=== PATIENT | female | born 1960 | race Caucasian/White ===

== ENCOUNTER 2019-10-11 10:04 | Emergency (ER) | payer MEDICAID, MEDICARE ==
[~2019-10-11] VITALS: Ht 157.4 cm; Wt 54.1 kg
[~2019-10-11 10:04] MED LIST: CTLP20T PO; ESOM10SU PO; METH4TAB PO; NAPR-243 PO; SULF1TAB38 PO
--- NOTE | 2019-10-11 10:15 | ED General ---
General Stated Complaint: WANTS HER PORT FLUSHED History of Present Illness Date Seen by Provider: Oct 11, 2019 Time Seen by Provider: 10:10 Initial Comments 59yo female presents requesting that her indwelling Mywv-p-Trrtauvb be flushed as she is due for a flush today. She has no acute medical complaints. Allergies and Home Medications Allergies Coded Allergies: Penicillins (Unverified Allergy, Severe, AIRWAY SWELLING, 04/14/10) Tetanus (Unverified Allergy, Severe, THROAT SWELLING, 04/14/10) Home Medications Citalopram Hydrobromide 20 Mg Tablet, Unknown Dose PO DAILY, (Reported) Naproxen 500 Mg Tablet, 1 EACH PO BID Prescribed by: SUSAN BARRAZA on 06/23/141915 Patient Home Medication List Home Medication List Reviewed: Yes Review of Systems Review of Systems Constitutional: see HPI All Other Systems Reviewed Negative Unless Noted: Yes (Negative excepted noted.) Past Djbykgf-Ggoedl-Qsjwos Hx Past Med/Social Hx: Reviewed Nursing Past Med/Soc Hx Seasonal Allergies Seasonal Allergies: Yes Past Medical History Section, Tubal Ligation PSYCHOLOGY ASSOCIATE History: Tubal Ligation Diverticulosis Arthritis Melanoma Anxiety, PTSD Family Medical History Reviewed Nursing Family Hx Physical Exam Vital Signs Capillary Refill : Height, Weight, BMI Height: 5'2" Weight: 130lbs. oz. 58.328831hz; BMI Method:Estimated General Appearance: No Apparent Distress Comments This is an older female appearing nontoxic and in no acute distress. Head is normocephalic and atraumatic. Neck is supple and nontender. Oropharynx is moist. Lungs are clear to auscultation in all stations. There is an indwelling portacatheter to the right upper chest wall without surrounding erythema, warmth, swelling or tenderness. There is a normal S1 and S2 without rubs or gallops and capillary refill is appropriate, less than 2 seconds globally. Abdomen is soft, nontender and nondistended. Skin is warm and dry without cyanosis, clubbing or edema. Psychiatrically, the patient demonstrates appropriate mood and affect and is alert. Progress/Results/Core Measures Suspected Sepsis SIRS Temperature: Pulse: Respiratory Rate: Blood Pressure / Mean: Results/Orders Vital Signs/I&O Capillary Refill : Progress Note : Time: 10:13 Progress Note Patient's indwelling gaem-a-yqhacjnj has been flushed by nursing as per her request. We will proceed with discharge at this time. Blood pressure is elevated today without cyanosis symptoms of acute end organ damage. Patient is counseled to follow-up with her primary care physician in the next 1-2 weeks for reassessment of her blood pressure. She understands and agrees. Departure Impression Primary Impression: Encounter for care related to Port-a-Cath Additional Impression: Benign essential HTN Disposition: 01 HOME, SELF-CARE Condition: Improved Departure-Patient Inst. Referrals: NO,LOCAL PHYSICIAN (PCP/Family) Primary Care Physician Patient Instructions: High Blood Pressure in Adults Add. Discharge Instructions: Follow-up with your primary care doctor in the next 1-2 weeks for a reevaluation of your blood pressure which was elevated at today's visit. Return to the emergency department right away with any new symptoms of concern. ROSHNI GIRON MD Oct 11, 2019 10:15
[2019-10-11 10:30] VITALS: BP 115/90
== END 2019-10-11 10:30 | disposition home or self-care (01) ==
LOC: EDUNIT# 10:04 → ER FS 10:06
DX: Z45.2 Encounter for adjustment and management of vascular access device (principal); I10 Essential (primary) hypertension; F41.9 Anxiety disorder, unspecified; Z88.0 Allergy status to penicillin; Z88.7 Allergy status to serum and vaccine; Z85.820 Personal history of malignant melanoma of skin

== ENCOUNTER → 2019-12-25 | Outpatient (CLI) | payer MEDICARE ==
[~2019-12-25] MED LIST changes: +HEParin (CENTRAL IV FLUSH) 500 UNIT/5 ML SYR IV ONE; +HEParin (CENTRAL IV FLUSH) 500 UNIT/5 ML SYR ONE
[2019-12-25 12:45] VITALS: BP 119/95
== END | disposition still patient (30) ==
LOC: SDC 12:38 → EDSTATUS 12-30 09:39
PROVIDERS: ATTEND Nurse Practitioner Family
DX: Z45.2 Encounter for adjustment and management of vascular access device (principal); Z85.118 Personal history of other malignant neoplasm of bronchus and lung
CPT/HCPCS: 96523

== ENCOUNTER 2020-03-22 11:21 | Outpatient (RCR) | payer MEDICARE ==
[2020-02-11 11:30] VITALS: BP 131/98
[~2020-03-22] VITALS: Ht 157.5 cm; Wt 57.9 kg
[2020-03-22 11:30] VITALS: BP 100/81
== END 2020-05-11 | disposition home or self-care (01) ==
LOC: SDC 11:21
PROVIDERS: ATTEND Nurse Practitioner Family
DX: Z85.118 Personal history of other malignant neoplasm of bronchus and lung (principal)
CPT/HCPCS: 96523

== ENCOUNTER 2020-06-05 19:28 | Emergency (ER) | payer MEDICARE, MEDICAID ==
[~2020-06-05] VITALS: Ht 157 cm; Wt 63.0 kg
[~2020-06-05 19:28] MED LIST changes: -HEParin (CENTRAL IV FLUSH) 500 UNIT/5 ML SYR IV ONE; -HEParin (CENTRAL IV FLUSH) 500 UNIT/5 ML SYR ONE
--- NOTE | 2020-06-05 21:14 | ED Back Pain ---
General Chief Complaint: Back Problems Stated Complaint: BACK SPASMS Nursing Triage Note: Pt here with back pain; states she has chronic back pain and low back spasms started a few days ago after "doing too much". Nursing Sepsis Screen: No Definite Risk Source of Information: Patient Exam Limitations: No Limitations History of Present Illness Date Seen by Provider: Jun 05, 2020 Time Seen by Provider: 21:13 Initial Comments To ER with midline low sacral back pain that is bilateral. No urinary symptoms. Pain present for a few days after "doing too much". She's been moving twice within the past couple of months. She states she was put on disability for chronic back pain but takes no medication for it. Location: Lumbar Spine, Paraspinous Muscles Timing/Duration: 1-2 Days Severity: Moderate Method of Injury: Unknown Associated Symptoms: denies symptoms Allergies and Home Medications Allergies Coded Allergies: Penicillins (Unverified Allergy, Severe, AIRWAY SWELLING, 04/14/10) Tetanus Vaccines and Toxoid (Unverified Allergy, Severe, THROAT SWELLING, 04/14/10) morphine (Unverified Adverse Reaction, Unknown, 12/25/19) Home Medications Citalopram Hydrobromide 20 Mg Tablet, Unknown Dose PO DAILY, (Reported) Naproxen 500 Mg Tablet, 1 EACH PO BID Prescribed by: SUSAN BARRAZA on 06/23/141915 Patient Home Medication List Home Medication List Reviewed: Yes Review of Systems Constitutional: see HPI EENTM: see HPI Respiratory: no symptoms reported Cardiovascular: no symptoms reported Genitourinary: no symptoms reported Musculoskeletal: see HPI, back pain Skin: no symptoms reported Psychiatric/Neurological: No Symptoms Reported Past Qfnohpd-Yivffc-Lqjudx Hx Patient Social History Type Used: Cigarettes 2nd Hand Smoke Exposure: Yes Recent Foreign Travel: No Contact w/Someone Who Travel: No Recent Infectious Disease Expo: No Recent Hopitalizations: No Seasonal Allergies Seasonal Allergies: Yes Past Medical History Surgeries: Yes (MELANOMAS REMOVED, X 3, L LUNG LOBECTOMY) Section, Lobectomy, Tubal Ligation Respiratory: Yes (L LUNG CA, TOBACCOISM) Cardiac: Yes Hypertension 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 Genitourinary: No Gastrointestinal: Yes (ULCERATIVE COLITIS) Colitis, Crohns Disease, Diverticulosis Musculoskeletal: Yes (BROKEN BACK HX) Arthritis Endocrine: Yes (CA THYROID) Hyperthyroidism HEENT: No Cancer: Yes ("LYMPH NODES") Lung, Melanoma, Thyroid What Type of Treatment Did You: Chemotherapy, Radiation, Surgical Intervention Psychosocial: Yes Anxiety, PTSD Integumentary: Yes (MELANOMA) Blood Disorders: No Physical Exam Vital Signs Vital Signs - First Documented 06/05/20 21:03 Temp 36.7 Pulse 126 Resp 18 B/P (MAP) 121/81 (94) Pulse Ox 98 O2 Delivery Room Air Capillary Refill : Less Than 3 Seconds Height, Weight, BMI Height: 5'2" Weight: 130lbs. oz. 58.894986tb; 25.00 BMI Method:Estimated General Appearance: No Apparent Distress, WD/WN, Thin, Other (she is tachycardic so for this reason I'll do a workup) HEENT: PERRL/EOMI, TMs Normal (which get an EKG on 5 a) Neck: Full Range of Motion, Normal Inspection Cardiovascular: Normal Peripheral Pulses, Tachycardia Respiratory: Chest Non Tender, No Accessory Muscle Use, No Respiratory Distress Gastrointestinal: Normal Bowel Sounds, Non Tender, Soft Extremity: Normal Capillary Refill, Normal Inspection Neurologic/Psychiatric: Alert, Oriented x3 Skin: Normal Color, Warm/Dry Progress/Results/Core Measures Results/Orders Lab Results Laboratory Tests Test 06/05/20 21:21 Range/Units White Blood Count 6.4 4.3-11.0 10^3/uL Red Blood Count 4.23 3.80-5.11 10^6/uL Hemoglobin 12.9 11.5-16.0 g/dL Hematocrit 39 35-52 % Mean Corpuscular Volume 92 80-99 fL Mean Corpuscular Hemoglobin 31 25-34 pg Mean Corpuscular Hemoglobin Concent 33 32-36 g/dL Red Cell Distribution Width 13.2 10.0-14.5 % Platelet Count 271 130-400 10^3/uL Mean Platelet Volume 9.2 9.0-12.2 fL Immature Granulocyte % (Auto) 0 % Neutrophils (%) (Auto) 71 42-75 % Lymphocytes (%) (Auto) 18 12-44 % Monocytes (%) (Auto) 7 0-12 % Eosinophils (%) (Auto) 3 0-10 % Basophils (%) (Auto) 1 0-10 % Neutrophils # (Auto) 4.6 1.8-7.8 10^3/uL Lymphocytes # (Auto) 1.1 1.0-4.0 10^3/uL Monocytes # (Auto) 0.5 0.0-1.0 10^3/uL Eosinophils # (Auto) 0.2 0.0-0.3 10^3/uL Basophils # (Auto) 0.0 0.0-0.1 10^3/uL Immature Granulocyte # (Auto) 0.0 0.0-0.1 10^3/uL Sodium Level 139 135-145 MMOL/L Potassium Level 3.1 L 3.6-5.0 MMOL/L Chloride Level 100 98-107 MMOL/L Carbon Dioxide Level 27 21-32 MMOL/L Anion Gap 12 5-14 MMOL/L Blood Urea Nitrogen 11 7-18 MG/DL Creatinine 0.87 0.60-1.30 MG/DL Estimat Glomerular Filtration Rate > 60 BUN/Creatinine Ratio 13 Glucose Level 128 H 70-105 MG/DL Calcium Level 9.3 8.5-10.1 MG/DL Corrected Calcium 9.1 8.5-10.1 MG/DL Total Bilirubin 0.3 0.1-1.0 MG/DL Aspartate Amino Transf (AST/SGOT) 21 5-34 U/L Alanine Aminotransferase (ALT/SGPT) 10 0-55 U/L Alkaline Phosphatase 66 40-136 U/L Troponin I < 0.028 <0.028 NG/ML Total Protein 7.7 6.4-8.2 GM/DL Albumin 4.3 3.2-4.5 GM/DL Thyroid Stimulating Hormone (TSH) 0.43 0.35-4.94 UIU/ML Free Thyroxine 1.00 0.70-1.48 NG/DL My Orders Orders - SUSAN BARRAZA GEOSPATIAL APPLICATIONS DEVELOPER Cbc With Automated Diff (06/05/20 21:07) Comprehensive Metabolic Panel (06/05/20 21:07) Ua Culture If Indicated (06/05/20 21:07) Ekg Tracing (06/05/20 21:07) Thyroid Stimulating Hormone (06/05/20 21:07) Free T4 (Free Thyroxine) (06/05/20 21:07) Ns Iv 1000 Ml (Sodium Chloride 0.9%) (06/05/20 21:15) Ketorolac Injection (Toradol Injection) (06/05/20 21:15) Orphenadrine Inj (Ed Only) (Norflex Inje (06/05/20 21:15) Troponin I (06/05/20 21:21) Potassium Chloride (Tablet) (Klor Con Ta (06/05/20 22:15) Medications Given in ED Current Medications Medications Dose Ordered Sig/Leonila Route Start Time Stop Time Status Last Admin Dose Admin Ketorolac Tromethamine 15 mg ONCE ONCE IVP 06/05/20 21:15 06/05/20 21:16 DC 06/05/20 21:27 15 MG Orphenadrine Citrate 60 mg ONCE ONCE IVP 06/05/20 21:15 06/05/20 21:16 DC 06/05/20 21:27 60 MG Vital Signs/I&O 06/05/20 21:03 Temp 36.7 Pulse 126 Resp 18 B/P (MAP) 121/81 (94) Pulse Ox 98 O2 Delivery Room Air Blood Pressure Mean: 94 Departure Impression Primary Impression: Low back pain Disposition: 01 HOME, SELF-CARE Condition: Stable Departure-Patient Inst. Decision time for Depature: 22:21 [address]errals: [facility] (PCP/Family) Primary Care Physician Patient Instructions: Low Back Pain (DC) Add. Discharge Instructions: 1. Return to ER for any concerns. Naproxen or ibuprofen anti-inflammatories in addition to the prescribed muscle relaxers. Follow-up with your doctor next week. All discharge instructions reviewed with patient and/or family. Voiced understanding. Scripts Methocarbamol (Robaxin-750) 750 Mg Tablet 750 MG PO Q4H PRN for PAIN-MODERATE (5-7), #20 TAB Prov: SUSAN BARRAZA APRN 06/05/20 SUSAN BARRAZA APRN Jun 05, 2020 21:14
[2020-06-05] MEDS ORDERED: NS IV 1000 ML 1,000 ML IV SCH (21:15)
[2020-06-05] MEDS ORDERED: KETOROLAC 30 MG/ML VIAL IVP ONE (21:15)
[2020-06-05] MEDS ORDERED: ORPHENADRINE 60 MG/2 ML (NORFLEX) AMP (ED ONLY) IVP ONE (21:15)
[2020-06-05 21:29] LABS: BASOPHILS % (AUTO) 1 % (0-10); EOSINOPHILS # (AUTO) 0.2 10^3/uL (0.0-0.3); EOSINOPHILS % (AUTO) 3 % (0-10); HEMATOCRIT 39 % (35-52); HEMOGLOBIN 12.9 g/dL (11.5-16.0); LYMPHOCYTES # (AUTO) 1.1 10^3/uL (1.0-4.0); LYMPHOCYTES % (AUTO) 18 % (12-44); MEAN CORPUSCULAR HEMOGLOBIN 31 pg (25-34); MEAN CORPUSCULAR HGB CONC 33 g/dL (32-36); MEAN CORPUSCULAR VOLUME 92 fL (80-99); MEAN PLATELET VOLUME 9.2 fL (9.0-12.2); MONOCYTES # (AUTO) 0.5 10^3/uL (0.0-1.0); MONOCYTES % (AUTO) 7 % (0-12); NEUTROPHILS # (AUTO) 4.6 10^3/uL (1.8-7.8); NEUTROPHILS % (AUTO) 71 % (42-75); PLATELET COUNT 271 10^3/uL (130-400); WHITE BLOOD COUNT 6.4 10^3/uL (4.3-11.0)
--- NOTE | 2020-06-05 21:45 | NUR ---
Late entry: Pt to room with c/o low back spasm; pt states she has chronic back pain and has moved recently and "done too much". Pt reports she takes no pain meds at home. Pt is able to ambulate to the room w/o difficulty with the use of a cane. Pt has an implanted port to the right chest; port accessed w/o difficulty. Labs sent; meds and fluids given as ordered.
[2020-06-05 21:48] LABS: ALBUMIN 4.3 GM/DL (3.2-4.5); CHLORIDE 100 MMOL/L (98-107); POTASSIUM 3.1 MMOL/L (3.6-5.0); SODIUM 139 MMOL/L (135-145)
[2020-06-05 21:49] LABS: CALCIUM 9.3 MG/DL (8.5-10.1)
[2020-06-05 21:51] LABS: GLUCOSE 128 MG/DL (70-105); TOTAL PROTEIN 7.7 GM/DL (6.4-8.2)
[2020-06-05 21:52] LABS: CARBON DIOXIDE 27 MMOL/L (21-32)
[2020-06-05 21:53] LABS: BILIRUBIN,TOTAL 0.3 MG/DL (0.1-1.0)
[2020-06-05 21:54] LABS: ALKALINE PHOSPHATASE 66 U/L (40-136); CREATININE SERUM 0.87 MG/DL (0.60-1.30); GFR ESTIMATED > 60
[2020-06-05 21:55] LABS: BUN/CREATININE RATIO 13
[2020-06-05 21:57] LABS: ALANINE AMINOTRANSFERASE 10 U/L (0-55)
[2020-06-05] MEDS ORDERED: KCL 10 MEQ TAB (MICRO K) PO ONE (22:15)
[2020-06-05] MEDS ORDERED: METH-313 PO (22:23)
[2020-06-05 22:55] LABS: BILIRUBIN,URINE NEGATIVE (NEGATIVE); CLARITY,URINE CLEAR; COLOR,URINE YELLOW; GLUCOSE, URINE (UA) NEGATIVE (NEGATIVE); KETONES,URINE NEGATIVE (NEGATIVE); LEUKOCYTE ESTERASE ,URINE TRACE (NEGATIVE); NITRITE,URINE POSITIVE (NEGATIVE); PROTEIN,URINE NEGATIVE (NEGATIVE)
[2020-06-05 23:05] LABS: BACTERIA,URINE LARGE /HPF; RBC,URINE 0-2 /HPF; SQUAMOUS EPITHELIAL CELL,UR 0-2 /HPF; WBC,URINE 50-100 /HPF
[2020-06-05 23:28] VITALS: BP 125/75
== END 2020-06-05 23:30 | disposition home or self-care (01) ==
LOC: EDUNIT# 19:28 → ER 19:30
DX: M54.5 Low back pain (principal); Z85.118 Personal history of other malignant neoplasm of bronchus and lung; Z85.850 Personal history of malignant neoplasm of thyroid; Z85.820 Personal history of malignant melanoma of skin; Z77.22 Contact with and (suspected) exposure to environmental tobacco smoke (acute) (chronic); Z88.0 Allergy status to penicillin; Z88.5 Allergy status to narcotic agent; Z88.7 Allergy status to serum and vaccine
CPT/HCPCS: 36415; 80053; 81000; 84439; 84443; 84484; 85025; 87077; 87088; 87186; 93005

== ENCOUNTER → 2020-06-15 | Outpatient (CLI) | payer MEDICARE, MEDICAID ==
[~2020-06-15] MED LIST changes: +METH-313 PO
== END ==
LOC: LAB 14:26
PROVIDERS: ATTEND Nurse Practitioner Family
DX: Z01.89 Encounter for other specified special examinations (principal); Z85.118 Personal history of other malignant neoplasm of bronchus and lung

== ENCOUNTER → 2020-06-15 | Outpatient (CLI) | payer MEDICARE, MEDICAID ==
[~2020-06-15] MED LIST changes: +CATHETER FLUSH 10 ML SYR IV PRN; +HOLD METFORMIN - RECEIVED CONTRAST 20 ML VIAL IV SCH; +IOHEXOL 350 MG/ML 100 ML (OMNIPAQUE 350) VIAL IV ONE; +NS 100 ML (IVPB) BAG IV ONE
[2020-06-15 14:48] LABS: ALBUMIN 4.3 GM/DL (3.2-4.5)
[2020-06-15 14:49] LABS: CHLORIDE 103 MMOL/L (98-107); POTASSIUM 4.5 MMOL/L (3.6-5.0); SODIUM 137 MMOL/L (135-145)
[2020-06-15 14:50] LABS: CALCIUM 9.5 MG/DL (8.5-10.1)
[2020-06-15 14:51] LABS: GLUCOSE 95 MG/DL (70-105); TOTAL PROTEIN 7.4 GM/DL (6.4-8.2)
[2020-06-15 14:52] LABS: CARBON DIOXIDE 25 MMOL/L (21-32)
[2020-06-15 14:53] LABS: BILIRUBIN,TOTAL 0.2 MG/DL (0.1-1.0)
[2020-06-15 14:54] LABS: ALKALINE PHOSPHATASE 72 U/L (40-136)
[2020-06-15 14:55] LABS: CREATININE SERUM 0.77 MG/DL (0.60-1.30); GFR ESTIMATED > 60
[2020-06-15 14:56] LABS: BUN/CREATININE RATIO 17
[2020-06-15 14:57] LABS: ALANINE AMINOTRANSFERASE 11 U/L (0-55)
--- NOTE | 2020-06-15 15:03 | Diagnostic Imaging Report ---
EXAMINATION: CT Chest with intravenous contrast. TECHNIQUE: Multiple contiguous axial images were obtained through the chest after the uneventful administration of intravenous contrast. All CT scans use one or more of the following dose optimizing techniques: automated exposure control, MA and/or KvP adjustment based on a patient size and exam type, or iterative reconstruction. HISTORY: Lung cancer. COMPARISON: 07/16/2019 FINDINGS: There has been a left upper lobectomy. There is fibrosis along the resection margin with architectural distortion which may be related to radiation therapy. Lungs are emphysematous and the left lower lobe is somewhat hyperinflated. Mild tree-in-bud nodules are seen in the left lower lobe likely representing aspiration. No pleural effusion. No pneumothorax. No suspicious nodules. There is a stable 8 mm left supraclavicular lymph node. There is no mediastinal lymphadenopathy. Heart size is normal. There are mild coronary artery calcifications. No pericardial effusion. Aorta is normal in caliber. Right port catheter tip terminates in the superior vena cava. Limited views of the upper abdomen are unremarkable. There are no suspicious osseous lesions. IMPRESSION: 1. Posttreatment changes in the left lung without local recurrence or metastatic disease. Dictated by: Dictated on workstation # [id number]
== END ==
LOC: RAD 14:45
PROVIDERS: ATTEND Nurse Practitioner
DX: Z85.118 Personal history of other malignant neoplasm of bronchus and lung (principal)
CPT/HCPCS: 36415; 71260; 80053

== ENCOUNTER 2020-07-01 13:51 | Outpatient (RCR) | payer MEDICARE, MEDICAID ==
[~2020-07-01 13:51] MED LIST changes: -CATHETER FLUSH 10 ML SYR IV PRN; -HOLD METFORMIN - RECEIVED CONTRAST 20 ML VIAL IV SCH; -IOHEXOL 350 MG/ML 100 ML (OMNIPAQUE 350) VIAL IV ONE; -NS 100 ML (IVPB) BAG IV ONE
[2020-07-01 14:22] LABS: BASOPHILS % (AUTO) 1 % (0-10); EOSINOPHILS # (AUTO) 0.3 10^3/uL (0.0-0.3); EOSINOPHILS % (AUTO) 6 % (0-10); HEMATOCRIT 36 % (35-52); HEMOGLOBIN 11.6 g/dL (11.5-16.0); LYMPHOCYTES # (AUTO) 1.3 10^3/uL (1.0-4.0); LYMPHOCYTES % (AUTO) 29 % (12-44); MEAN CORPUSCULAR HEMOGLOBIN 30 pg (25-34); MEAN CORPUSCULAR HGB CONC 33 g/dL (32-36); MEAN CORPUSCULAR VOLUME 93 fL (80-99); MONOCYTES # (AUTO) 0.3 10^3/uL (0.0-1.0); MONOCYTES % (AUTO) 7 % (0-12); NEUTROPHILS # (AUTO) 2.5 10^3/uL (1.8-7.8); NEUTROPHILS % (AUTO) 57 % (42-75); PLATELET COUNT 238 10^3/uL (130-400); WHITE BLOOD COUNT 4.4 10^3/uL (4.3-11.0)
[2020-07-01 14:42] LABS: ALANINE AMINOTRANSFERASE 9 U/L (0-55); ALBUMIN 4.2 GM/DL (3.2-4.5); ALKALINE PHOSPHATASE 64 U/L (40-136); BILIRUBIN,TOTAL 0.3 MG/DL (0.1-1.0); BUN/CREATININE RATIO 12; CALCIUM 9.2 MG/DL (8.5-10.1); CARBON DIOXIDE 24 MMOL/L (21-32); CHLORIDE 104 MMOL/L (98-107); CREATININE SERUM 0.74 MG/DL (0.60-1.30); GFR ESTIMATED > 60; GLUCOSE 86 MG/DL (70-105); POTASSIUM 3.6 MMOL/L (3.6-5.0); SODIUM 139 MMOL/L (135-145)
== END 2020-09-17 08:06 | disposition home or self-care (01) ==
LOC: ONC 13:51
PROVIDERS: ATTEND Internal Medicine Hematology & Oncology
DX: C34.12 Malignant neoplasm of upper lobe, left bronchus or lung (principal); J44.9 Chronic obstructive pulmonary disease, unspecified; Z87.891 Personal history of nicotine dependence; Z80.1 Family history of malignant neoplasm of trachea, bronchus and lung
CPT/HCPCS: 80053; 85025; G0463; 99214

== ENCOUNTER → 2020-07-20 | Outpatient (CLI) | payer MEDICARE, MEDICAID ==
[~2020-07-20] MED LIST changes: +RT-ALBUTEROL SULF 2.5 MG/3 ML PRE-MIX VIAL INH ONE
== END ==
LOC: RT 15:30
PROVIDERS: ATTEND Nurse Practitioner Family
DX: J30.9 Allergic rhinitis, unspecified (principal); R91.8 Other nonspecific abnormal finding of lung field; F17.210 Nicotine dependence, cigarettes, uncomplicated; Z85.118 Personal history of other malignant neoplasm of bronchus and lung
CPT/HCPCS: 94060; 94726; 94729

== ENCOUNTER → 2020-09-14 | Outpatient (CLI) | payer MEDICAID, MEDICARE ==
[~2020-09-14] MED LIST changes: -RT-ALBUTEROL SULF 2.5 MG/3 ML PRE-MIX VIAL INH ONE
--- NOTE | 2020-09-20 13:55 | Diagnostic Imaging Report ---
EXAMINATION: Digital mammogram bilateral screening with CAD. INDICATION: Screening. COMPARISON: This study was compared to the prior exams of 11/14/2017 and 09/28/2009. PERSONAL HISTORY: At this time, there are no current complaints. FINDINGS: The fibroglandular tissue in both breasts is heterogeneously dense. This does limit the sensitivity of this exam. Overall, there does not appear to have been any significant change when compared to the prior study. No primary or secondary sign of malignancy is noted. IMPRESSION: 1. There is no evidence for malignancy. 2. The patient should have her annual bilateral screening mammogram on schedule in September 2021. ACR BI-RADS Category 1: Negative. Result letter will be mailed to the patient. Note: At least 10% of breast cancer is not imaged by mammography. Dictated by: Dictated on workstation # [id number]
== END ==
LOC: RAD 09:39
PROVIDERS: ATTEND Nurse Practitioner
DX: Z12.31 Encounter for screening mammogram for malignant neoplasm of breast (principal)
CPT/HCPCS: 77063; 77067

== ENCOUNTER 2020-09-23 14:06 | Outpatient (RCR) | payer MEDICARE, MEDICAID ==
[2020-09-23 14:29] LABS: BASOPHILS % (AUTO) 1 % (0-10); EOSINOPHILS # (AUTO) 0.2 10^3/uL (0.0-0.3); EOSINOPHILS % (AUTO) 4 % (0-10); HEMATOCRIT 39 % (35-52); HEMOGLOBIN 12.5 g/dL (11.5-16.0); LYMPHOCYTES # (AUTO) 1.4 10^3/uL (1.0-4.0); LYMPHOCYTES % (AUTO) 26 % (12-44); MEAN CORPUSCULAR HEMOGLOBIN 31 pg (25-34); MEAN CORPUSCULAR HGB CONC 32 g/dL (32-36); MEAN CORPUSCULAR VOLUME 95 fL (80-99); MEAN PLATELET VOLUME 9.2 fL (9.0-12.2); MONOCYTES # (AUTO) 0.4 10^3/uL (0.0-1.0); MONOCYTES % (AUTO) 7 % (0-12); NEUTROPHILS # (AUTO) 3.4 10^3/uL (1.8-7.8); NEUTROPHILS % (AUTO) 62 % (42-75); PLATELET COUNT 224 10^3/uL (130-400); WHITE BLOOD COUNT 5.4 10^3/uL (4.3-11.0)
[2020-09-23 14:48] LABS: ALANINE AMINOTRANSFERASE 10 U/L (0-55); ALBUMIN 4.2 GM/DL (3.2-4.5); ALKALINE PHOSPHATASE 66 U/L (40-136); BILIRUBIN,TOTAL 0.2 MG/DL (0.1-1.0); BUN/CREATININE RATIO 12; CALCIUM 9.3 MG/DL (8.5-10.1); CARBON DIOXIDE 29 MMOL/L (21-32); CHLORIDE 101 MMOL/L (98-107); CREATININE SERUM 0.83 MG/DL (0.60-1.30); GFR ESTIMATED > 60; GLUCOSE 91 MG/DL (70-105); POTASSIUM 3.9 MMOL/L (3.6-5.0); SODIUM 138 MMOL/L (135-145); TOTAL PROTEIN 7.3 GM/DL (6.4-8.2)
== END 2020-12-22 | disposition home or self-care (01) ==
LOC: ONC 14:06
PROVIDERS: ATTEND Internal Medicine Hematology & Oncology
DX: C34.12 Malignant neoplasm of upper lobe, left bronchus or lung (principal); J44.9 Chronic obstructive pulmonary disease, unspecified; Z87.891 Personal history of nicotine dependence; Z80.1 Family history of malignant neoplasm of trachea, bronchus and lung
CPT/HCPCS: 80053; 82378; 85025; 99213

== ENCOUNTER 2020-10-19 05:35 | Outpatient (RCR) | payer MEDICARE, MEDICAID ==
[~2020-10-19] VITALS: Ht 157.5 cm; Wt 63.6 kg
== END 2020-10-20 11:01 | disposition home or self-care (01) ==
LOC: PREOP 05:35
PROVIDERS: ATTEND Surgery
DX: Z01.818 Encounter for other preprocedural examination (principal); C34.90 Malignant neoplasm of unspecified part of unspecified bronchus or lung; Z20.822 Contact with and (suspected) exposure to COVID-19
CPT/HCPCS: 87635

== ENCOUNTER 2020-10-21 10:23 | Day surgery (SDC) | payer MEDICARE, MEDICAID ==
[2020-10-21] VITALS (8 sets, daily range): BP systolic 91–110; BP diastolic 54–72
[~2020-10-21] VITALS: Ht 157.5 cm; Wt 63.6 kg
[2020-10-21] MEDS ORDERED: LIDOCAINE/EPI 1%-1:100,000 (XYLOCAINE) 50 ML ONE (10:44)
[2020-10-21] MEDS ORDERED: LACTATED RINGERS 1,000 ML IV PRN (10:45)
[2020-10-21] MEDS ORDERED: CLINDAMYCIN 600 MG/50 ML IVPB 50 ML IV ONE ×2 (10:45→10:51)
--- NOTE | 2020-10-21 11:12 | Progress Note-Pre Operative ---
Pre-Operative Progress Note H&P Reviewed The H&P was reviewed, patient examined and no changes noted. Date Seen by Provider: Oct 21, 2020 Time Seen by Provider: 11:12 Date H&P Reviewed: Oct 21, 2020 Time H&P Reviewed: 11:12 Pre-Operative Diagnosis: lung ca CARLOZ LUJAN DO Oct 21, 2020 11:12
[2020-10-21] MEDS ORDERED: proPOfol 200 MG/20 ML (DIPRIVAN) VIAL IV ONE (12:00)
[2020-10-21] MEDS ORDERED: MIDAZOLAM 2 MG/2 ML (VERSED) VIAL ONE (12:00)
[2020-10-21] MEDS ORDERED: LIDOCAINE PF 2% 5 ML (XYLOCAINE) VIAL ONE (12:00)
--- NOTE | 2020-10-21 14:34 | Anesthesia-General Post-Op ---
MAC Patient Condition Mental Status/LOC: Same as Preop Cardiovascular: Satisfactory Nausea/Vomiting: Absent Respiratory: Satisfactory Pain: Controlled Complications: Absent Post Op Complications Complications None Follow Up Care/Instructions Patient Instructions None needed. Anesthesiology Discharge Order Discharge Order Patient was seen this morning after the procedure and she was doing well, no complaints, stable vital signs, no apparent adverse anesthesia problems. DIAN NIX DO Oct 21, 2020 14:34
--- NOTE | 2020-10-21 16:57 | Progress Note-Post Operative ---
Post-Operative Progess Note Surgeon (s)/Movie Critic (s) Surgeon CARLOZ LUJAN DO Movie Critic: na Pre-Operative Diagnosis lung ca Post-Operative Diagnosis same Procedure & Operative Findings Date of Procedure 10/21/20 Procedure Performed/Findings PROCEDURE: Removal of port, COMPLICATIONS: None. INDICATIONS: The patient is a 60 year-old female who had a port previously placed. Patient is ok to have port removed. The patient was explained risk and benefits of the procedure and wished to proceed with procedure. Consent was signed on the chart. PROCEDURE: The patient was taken to the operating suite and was prepped and draped in sterile fashion. A surgical pause was performed. Local anesthetic was infiltrated to the area around the port. A number 15 blade scalpel was used to make an incision. Cautery was used to dissect down to the port which was then grasped and then dissected around. The catheter was removed in its entirety. The port was then able to be dissected out of the pocket and elevated. The wound was then irrigated with copious amounts of irrigation. Hemostasis had been achieved. The subcutaneous tissues were then reapproximated using 3-0 Vicryl. Skin was then closed using Skin Affix placed over the incision. The patient tolerated the procedure well without complication and was taken to recovery room in stable condition. Anesthesia Type Mac c local Estimated Blood Loss Estimated blood loss (mL): minimal Specimens/Packing Specimens Removed port removed in entirety, not sent for pathology CARLOZ LUJAN DO Oct 21, 2020 16:57
== END 2020-10-21 13:55 | disposition home or self-care (01) ==
LOC: SDC 10:23
PROVIDERS: ATTEND Surgery
DX: C34.90 Malignant neoplasm of unspecified part of unspecified bronchus or lung (principal); F41.9 Anxiety disorder, unspecified; F43.10 Post-traumatic stress disorder, unspecified; J43.9 Emphysema, unspecified; F17.210 Nicotine dependence, cigarettes, uncomplicated; Z79.899 Other long term (current) drug therapy; Z88.0 Allergy status to penicillin; Z88.5 Allergy status to narcotic agent; Z80.9 Family history of malignant neoplasm, unspecified; Z83.3 Family history of diabetes mellitus
CPT/HCPCS: 87081

== ENCOUNTER → 2020-11-23 | Outpatient (CLI) | payer MEDICARE, MEDICAID ==
--- NOTE | 2020-11-23 11:45 | Diagnostic Imaging Report ---
INDICATION: Postmenopausal. COMPARISON: 09/28/2009 FINDINGS: The prior exam of 09/28/2009 is not available for direct comparison. The report from that study did note that the T score for the lumbar spine measured 3.4. The total T score for the right hip was 1.3 and for the left 1.4. All these values are within normal limits. On this exam the bone mineral density of the spine has decreased and the T score is now -1.0. This value is at the lowest end of normal. The total T score for each hip is -0.8. This value has also decreased since the prior exam but is still within normal limits. The T score for the femoral necks was not calculated on the prior study. On this exam the T score for the left femoral neck is -0.6 and for the right femoral neck -0.2. AP Spine L1-L4: [BMD (g/cm2): 1.083] [T-Score: -1.0] [Z-Score: 0.1] [BMD Previous: 1.652] [BMD % Change: -34.4] LT Hip Neck: [BMD (g/cm2): 0.955] [T-Score: -0.6] [Z-Score: 0.6] LT Hip Total: [BMD (g/cm2):0.906] [T-Score:-0.8] [Z-Score: 0.0] [BMD Previous: 1.189] [BMD % Change: -23.8] RT Hip Neck: [BMD (g/cm2):1.007] [T-Score:-0.2] [Z-Score:0.9] RT Hip Total: [BMD (g/cm2):0.906] [T-score:-0.8] [Z-Score:0.0] [BMD Previous:1.170] [BMD % Change:-22.6] *Indicates significant change from prior examination based on 95% confidence level. World Health Organization criteria for BMD interpretation classify patients as Normal (T-score at or above -1.0), Osteopenic (T-score between -1.0 and -2.5) or Osteoporotic (T-score at or below -2.5). LIMITATIONS AND MODIFICATION: None. FRACTURE RISK (FRAX SCORE): The ten year probability of (%): Major Osteoporotic Fracture: [na] Hip Fracture: [na] IMPRESSION: 1. The bone mineral density of the hips and spine has decreased since the prior exam. However all the T score values are still within normal limits although the T score for the spine is at the lowest end of normal. 2. The bone mineral density of the femoral necks is also felt to be within normal limits. 3. See below National Osteoporosis Foundation guidelines on when to potentially initiate pharmacologic therapy. Based on the National Osteoporosis Foundation Guidelines, pharmacologic treatment should be initiated in any of the following, unless clinical conditions suggest otherwise: * Any patient with prior fragility fracture of the hip or vertebrae. A spine fracture indicates 5X risk for subsequent spine fracture and 2X risk for subsequent hip fracture. * Osteoporosis (T-score <-2.5). * Postmenopausal women and men age 50 and older with low bone mass/osteopenia (T-score between -1.0 and -2.5) by DXA and 10-year major osteoporotic fracture greater than 20% or a 10-year probability of hip fracture greater than 3%. These fracture risks are supplied above in the FRAX score, if applicable. * Clinician judgement and/or patient preferences may indicate treatment for people with 10-year fracture probabilities above or below these levels. Dictated by: Dictated on workstation # [id number]
== END ==
LOC: RAD 10:59
PROVIDERS: ATTEND Nurse Practitioner
DX: Z13.820 Encounter for screening for osteoporosis (principal); Z78.0 Asymptomatic menopausal state
CPT/HCPCS: 77080

== ENCOUNTER → 2021-02-03 | Outpatient (CLI) | payer MEDICARE, MEDICAID ==
[~2021-02-03] VITALS: Ht 157.5 cm; Wt 62.7 kg
[~2021-02-03] MED LIST changes: +LIDOCAINE 1% INJ 20 ML 20 ML VIAL INJ ONE
--- NOTE | 2021-02-03 15:33 | Diagnostic Imaging Report ---
INDICATION: Right thyroid nodule. Patient presents for ultrasound-guided fine-needle aspiration and biopsy. Patient brought to the procedure and placed on the bed in the supine position. Ultrasound imaging of the right neck was performed to evaluate appropriate entry site. The right neck was then prepped and draped in the usual sterile fashion. Small amount of 1% lidocaine was utilized for local anesthesia. A total of 4 passes were made into the hypoechoic nodule with microcalcifications and lower pole right lobe thyroid utilizing 25-gauge needles and fine-needle aspiration technique. A single pass was made with a Rotex needle and a Rotex biopsy was performed. [place] were removed and hemostasis was obtained using manual compression. Patient tolerated procedure well and left the department in stable condition. IMPRESSION: Successful ultrasound guided fine needle aspiration and Rotex biopsy of right lobe thyroid nodule. Pathology results are currently pending. Dictated by: Dictated on workstation # [id number]
== END ==
LOC: RAD 13:30
PROVIDERS: ATTEND Internal Medicine Endocrinology, Diabetes & Metabolism
DX: E04.1 Nontoxic single thyroid nodule (principal)
CPT/HCPCS: 10005

== ENCOUNTER 2021-11-22 13:41 | Outpatient (RCR) | payer MEDICARE, MEDICAID ==
[~2021-11-22 13:41] MED LIST changes: -LIDOCAINE 1% INJ 20 ML 20 ML VIAL INJ ONE
== END 2021-12-08 ==
LOC: ONC 13:41
PROVIDERS: ATTEND Internal Medicine Hematology & Oncology
DX: R91.8 Other nonspecific abnormal finding of lung field (principal); Z86.16 Personal history of COVID-19; Z85.118 Personal history of other malignant neoplasm of bronchus and lung; Z92.21 Personal history of antineoplastic chemotherapy; Z85.820 Personal history of malignant melanoma of skin
CPT/HCPCS: 99213

== ENCOUNTER 2021-12-22 07:28 | Outpatient (CLI) | payer MEDICARE, MEDICAID ==
[~2021-12-22] VITALS: Ht 157 cm; Wt 62.0 kg
[2021-12-26] MEDS ORDERED: CETI10TA49 PO (12:38)
[2021-12-26] MEDS ORDERED: FLUT1BLS3 IH (12:38)
[2021-12-26] MEDS ORDERED: FLUT15.845 NS (12:38)
[2021-12-26] MEDS ORDERED: RT-ALBUINH IH (12:38)
== END 2021-12-26 13:18 | disposition home or self-care (01) ==
LOC: PREOP 07:28
PROVIDERS: ATTEND Surgery
DX: Z01.818 Encounter for other preprocedural examination (principal)

== ENCOUNTER 2022-01-03 11:59 | Day surgery (SDC) | payer MEDICARE, MEDICAID ==
[~2022-01-03] VITALS: Ht 157.5 cm; Wt 62.0 kg
[~2022-01-03 11:59] MED LIST changes: +CETI10TA49 PO; +FLUT15.845 NS; +FLUT1BLS3 IH; +RT-ALBUINH IH
[2022-01-03] MEDS ORDERED: LACTATED RINGERS 1,000 ML IV ONE (12:04)
[2022-01-03] MEDS ORDERED: LACTATED RINGERS 1,000 ML IV STA (12:06)
[2022-01-03 12:20] VITALS: BP 103/83
--- NOTE | 2022-01-03 13:23 | Progress Note-Pre Operative ---
Pre-Operative Progress Note H&P Reviewed The H&P was reviewed, patient examined and no changes noted. Date Seen by Provider: Jan 03, 2022 Time Seen by Provider: 13:23 Date H&P Reviewed: Jan 03, 2022 Time H&P Reviewed: 13:23 Pre-Operative Diagnosis: h/o polyps CARLOZ LUJAN DO Jan 03, 2022 13:23
[2022-01-03] MEDS ORDERED: PROPOFOL INJECTION 50 ML IV ONE (13:36)
[2022-01-03] MEDS ORDERED: MIDAZOLAM 2 MG/2 ML (VERSED) VIAL ONE (13:36)
--- NOTE | 2022-01-03 14:14 | Progress Note-Post Operative ---
Post-Operative Progess Note Surgeon (s)/Stapling Machine Operator (s) Surgeon CARLOZ LUJAN DO Stapling Machine Operator: none Pre-Operative Diagnosis h/o polyps Post-Operative Diagnosis Incomplete colonoscopy. Diverticulosis. Procedure & Operative Findings Date of Procedure 01/03/22 Procedure Performed/Findings Flexible sigmoidoscopy Anesthesia Type per SHOOK MACHINE OPERATOR Estimated Blood Loss Estimated blood loss (mL): none Specimens/Packing Specimens Removed none CARLOZ LUJAN DO Jan 03, 2022 14:14
--- NOTE | 2022-01-03 14:15 | Discharge Inst-Simple/Standard ---
Discharge Inst-Standard Patient Instructions/Follow Up Plan of Care/Instructions/FU: 2 weeks Pieter -- CT scan adbomen pelvis with rectal contrast Activity as Tolerated: Yes Discharge Diet: Regular Diet (High fiber) CARLOZ LUJAN DO Jan 03, 2022 14:15
[2022-01-03 14:17] VITALS: BP 108/60
[2022-01-03 14:25] VITALS: BP 110/60
[2022-01-03 14:30] VITALS: BP 122/78
--- NOTE | 2022-01-03 14:51 | Anesthesia-General Post-Op ---
MAC Patient Condition Mental Status/LOC: Same as Preop Cardiovascular: Satisfactory Nausea/Vomiting: Absent Respiratory: Satisfactory Pain: Controlled Complications: Absent Post Op Complications Complications None Follow Up Care/Instructions Patient Instructions None needed. Anesthesiology Discharge Order Discharge Order Patient is doing well, no complaints, stable vital signs, no apparent adverse anesthesia problems. No complications reported per nursing. BIBI FLOOD CRNA Jan 03, 2022 14:51
--- NOTE | 2022-01-03 19:12 | OPERATIVE REPORT ---
DATE OF SERVICE: 01/03/2022 PREOPERATIVE DIAGNOSIS: History of polyps. POSTOPERATIVE DIAGNOSES: Incomplete colonoscopy, diverticulosis. PROCEDURE: Flexible sigmoidoscopy. SURGEON: Carloz Stapleton DO ANESTHESIA: Per STENCIL CUTTER. ESTIMATED BLOOD LOSS: None. COMPLICATIONS: None. INDICATIONS: The patient is a 61-year-old female with history of colon polyps. She wishes to proceed with procedure. Consent was signed in the chart. DESCRIPTION OF PROCEDURE: The patient was taken to the endoscopy suite, placed in left lateral recumbent position. Timeout was performed. Digital rectal exam was performed. No palpable polyps, masses, or ulcerations. Scope was inserted in the rectum, advanced through the rectum and into the sigmoid colon. He came to a point where there was a tight turn. Multiple repositionings were made and then the scope was able to be finally passed through this area, noting some diverticulosis. At this point, the scope could not be advanced any further. Again, the patient was repositioned multiple times and unable to advance the scope. At this time, the scope was then slowly retracted back. No polyps, masses, or ulcerations within the sigmoid colon visualized and into the rectum, scope was inserted and retracted multiple times, noting no other pathology. Scope was returned slowly withdrawn until completely removed. The patient tolerated procedure well without any complications. She was taken to recovery room in stable condition. RECOMMENDATIONS: The patient recommended high fiber diet due to diverticulosis. We will get a CT scan of the abdomen and pelvis with rectal contrast to further evaluate. CC: [facility] -- requested, unable to deliver. Job ID: [id number] DocumentID: [id number] Dictated Date: 01/03/2022 14:15:01 Business Continuity Management Director Date: 01/03/2022 19:11:42 Dictated By: CARLOZ STAPLETON DO
== END 2022-01-03 14:40 | disposition home or self-care (01) ==
LOC: ENDO 11:59
PROVIDERS: ATTEND Surgery
DX: Z12.11 Encounter for screening for malignant neoplasm of colon (principal); K57.30 Diverticulosis of large intestine without perforation or abscess without bleeding; F17.210 Nicotine dependence, cigarettes, uncomplicated; Z86.010 Personal history of colon polyps; Z85.118 Personal history of other malignant neoplasm of bronchus and lung

== ENCOUNTER → 2022-01-06 | Outpatient (CLI) | payer MEDICARE, MEDICAID ==
[~2022-01-06] MED LIST changes: +HOLD METFORMIN - RECEIVED CONTRAST 20 ML VIAL IV SCH; +IOHEXOL 350 MG/ML 100 ML (OMNIPAQUE 350) VIAL IV ONE; +NS 100 ML (IVPB) BAG IV ONE
[2022-01-06 12:25] LABS: CREATININE SERUM 0.79 MG/DL (0.60-1.30)
--- NOTE | 2022-01-06 14:04 | Diagnostic Imaging Report ---
PROCEDURE: CT abdomen and pelvis with contrast. TECHNIQUE: Multiple contiguous axial images were obtained through the abdomen and pelvis after administration of intravenous contrast. Auto Exposure Controls were utilized during the CT exam to meet ALARA standards for radiation dose reduction. All CT scans use one or more of the following dose optimizing techniques: automated exposure control, MA and/or KvP adjustment based on patient size and exam type or iterative reconstruction. INDICATION: Incomplete passage of stool, incomplete colonoscopy. COMPARISON: 07/22/2019 FINDINGS: Mild background emphysematous changes. The liver and spleen are unremarkable. The adrenal glands are unremarkable. The pancreas is unremarkable. The gallbladder is unremarkable. Exophytic cyst arising from the inferior pole of the left kidney. Vascular calcifications versus nonobstructing calculi are noted within the superior pole of the left kidney. The kidneys are otherwise unremarkable. Moderate vascular calcifications within the abdominal aorta and its branch vessels without aneurysmal dilatation of the abdominal aorta. Mural thickening of the urinary bladder, though the urinary bladder is not well-distended. Prominent vessels are identified about the uterus bilaterally, left greater than right. No abnormal adnexal mass lesion. Mild colonic diverticulosis without CT evidence of acute diverticulitis. The appendix is unremarkable. No bowel obstruction or pneumatosis. Mural thickening of the sigmoid colon is identified, though this appears similar to 2019 and there is no significant adjacent inflammatory stranding. No significant adenopathy, free air, or free fluid within the abdomen or pelvis. 1.5 cm anterolisthesis of L4 on L5 secondary to bilateral pars interarticularis defects of L4. Scattered osseous degenerative changes without acute osseous abnormality. IMPRESSION: Mild mural thickening of the sigmoid colon, favored to simply relate to poor distention as this appears similar to prior imaging from 2019 and there is no adjacent inflammatory stranding. No evidence of bowel obstruction. Grade 2 anterolisthesis of L4 on L5 secondary to bilateral pars interarticularis defects of L4. Prominent vessels about the uterus, left greater than right. This can be seen with pelvic congestion syndrome. Nonobstructing left renal calculi versus vascular calcifications. Dictated by: Dictated on workstation # [id number]
== END ==
LOC: RAD 11:49
PROVIDERS: ATTEND Surgery
DX: K63.89 Other specified diseases of intestine (principal); M43.16 Spondylolisthesis, lumbar region
CPT/HCPCS: 36415; 74177; 82565; 84520

== ENCOUNTER → 2022-01-06 | Outpatient (CLI) | payer MEDICARE, MEDICAID ==
[2022-01-06 12:59] LABS: ALANINE AMINOTRANSFERASE 9 U/L (0-55); ALBUMIN 4.6 GM/DL (3.2-4.5); ALKALINE PHOSPHATASE 70 U/L (40-136); BILIRUBIN,TOTAL 0.4 MG/DL (0.1-1.0); BUN/CREATININE RATIO 14; CARBON DIOXIDE 23 MMOL/L (21-32); CHLORIDE 102 MMOL/L (98-107); CHOLESTEROL 248 MG/DL (< 200); GFR ESTIMATED 84; GLUCOSE 91 MG/DL (70-105); HDL CHOLESTEROL 40 MG/DL (40-60); SODIUM 140 MMOL/L (135-145); TOTAL PROTEIN 7.8 GM/DL (6.4-8.2); TRIGLYCERIDES 114 MG/DL (<150); VLDL CHOLESTEROL 23 MG/DL (5-40)
== END ==
LOC: LABNPT 12:32
PROVIDERS: ATTEND Nurse Practitioner
DX: Z13.1 Encounter for screening for diabetes mellitus (principal); E78.5 Hyperlipidemia, unspecified; E04.1 Nontoxic single thyroid nodule; R15.0 Incomplete defecation
CPT/HCPCS: 80053; 80061; 84443